=== PATIENT | female | born 1935 | race Caucasian/White ===

== ENCOUNTER 2017-06-08 14:51 | Emergency (ER) | payer MEDICARE, BC ==
[2017-06-08] MEDS ORDERED: Ondansetron 4 MG/2 ML SDV IV ONE (14:53)
[2017-06-08] MEDS ORDERED: fentaNYL 100 MCG/2 ML SDV IVPUSH ONE ×3 (14:54→16:03)
[2017-06-08] MEDS ORDERED: Sodium Chloride 0.9% 10 ML Syringe FLUSH PRN (14:54)
--- NOTE | 2017-06-08 14:57 | EDM.PDOC ---
ED HPI GENERAL MEDICAL PROBLEM - General Chief Complaint: Lower Extremity Injury/Pain Stated Complaint: AMBULANCE Time Seen by Provider: 06/08/17 14:51 Source of Information: Reports: Patient, EMS, RN, RN Notes Reviewed History Limitations: Reports: No Limitations - History of Present Illness INITIAL COMMENTS - FREE TEXT/NARRATIVE: Arrive from the [facility] by ambulance with report that pt slipped on ice as she got off the [employer] bus and fell to the ground sustaining an injury to the left hip area. Pt states that she cannot bear to move her left hip at all. Paramedics report pt's left leg was shortened and externally rotated. Pt denies head injury, neck pain, or any other injury. Onset: Today, Sudden Onset Date: 06/08/17 Duration: Constant Location: Reports: Lower Extremity, Left (Hip/Pelvis) Quality: Reports: Ache Severity: Severe Improves with: Reports: Immobilization Worsens with: Reports: Movement Context: Reports: Other (Ground level fall on ice.) Associated Symptoms: Reports: No Other Symptoms Left Hip Pain Score (Numeric/FACES): 10 - Related Data Allergies Allergy/AdvReac Type Severity Reaction Status Date / Time No Known Allergies Allergy Verified 06/08/17 15:58 Home Meds: Home Meds Lisinopril 2.5 mg PO DAILY 07/26/14 [History] Simvastatin 20 mg PO BEDTIME 07/26/14 [History] Warfarin [Coumadin] 4 mg PO DAILY 07/26/14 [History] Past Medical History Other HEENT History: wearing corrective lenses Cardiovascular History: Reports: Blood Clots/VTE/DVT, High Cholesterol Other OB/BYN History: Section Other Neuro History: Sciatica Hematologic History: Reports: Anticoagulation Therapy - Past Surgical History Other Cardiovascular Surgeries/Procedures: IVC filter Social & Family History - Family History Family Medical History: Noncontributory - Tobacco Use Smoking Status *Q: Never Smoker Second Hand Smoke Exposure: No - Caffeine Use Caffeine Use: Reports: None - Alcohol Use Days Per Week of Alcohol Use: 0 - Recreational Drug Use Recreational Drug Use: No Review of Systems - Review of Systems Review Of Systems: ROS reveals no pertinent complaints other than HPI. ED EXAM, GENERAL - Physical Exam Exam: See Below Exam Limited By: No Limitations General Appearance: Alert, WD/WN, No Apparent Distress Ears: Hearing Grossly Normal Nose: Normal Inspection Throat/Mouth: Normal Inspection, Normal Voice, No Airway Compromise Head: Atraumatic, Normocephalic Neck: Normal Inspection, Supple, Non-Tender, Full Range of Motion Respiratory/Chest: No Respiratory Distress, Lungs Clear, Normal Breath Sounds, No Accessory Muscle Use, Chest Non-Tender Cardiovascular: Regular Rate, Rhythm, No Edema GI/Abdominal: Normal Bowel Sounds, Soft, Non-Tender, No Distention (Female) Exam: Deferred Rectal (Female) Exam: Deferred Extremities: No Pedal Edema, Normal Capillary Refill, Leg Pain (left hip, with left lower ext. shortened and externally rotated), Limited Range of Motion ( left hip due to pain) Neurological: Alert, Oriented, CN II-XII Intact, Normal Cognition, No Motor/ Sensory Deficits Psychiatric: Normal Mood Skin Exam: Warm, Dry, Intact, Normal Color, No Rash Course - Vital Signs Last Recorded V/S: Last Vital Signs Temp 36.4 C 06/08/17 14:51 Pulse 66 06/08/17 14:51 Resp 14 06/08/17 14:51 BP 125/56 L 06/08/17 14:51 Pulse Ox 100 06/08/17 14:51 - Orders/Labs/Meds Orders: Active Orders 24 hr Category Date Time Status Peripheral IV Care [RC] . DIRECTED Care 06/08/17 14:54 Active Sodium Chloride 0.9% [Saline Flush] Med 06/08/17 14:54 Active 10 ml FLUSH ASDIRECTED PRN Peripheral IV Insertion Adult [OM.PC] Stat Oth 06/08/17 14:54 Ordered Medication Orders Sodium Chloride (Saline Flush) 10 ml FLUSH ASDIRECTED PRN PRN Reason: Keep Vein Open Last Admin: 06/08/17 15:20 Dose: 10 ml Labs: Laboratory Tests 06/08/17 06/08/17 Range/Units 15:12 15:12 WBC 6.2 (5.0-10.0) 10^3/uL RBC 4.11 L (4.2-5.4) 10^6/uL Hgb 13.4 (12.0-16.0) g/dL Hct 38.8 (37.0-47.0) % MCV 94.4 (80-100) fL MCH 32.6 (27.0-34.0) pg MCHC 34.5 (33.0-35.0) g/dL Plt Count 162 (150-450) 10^3/uL Neut % (Auto) 45.8 (42.2-75.2) % Lymph % (Auto) 44.4 (20.5-50.1) % Yancey % (Auto) 9.1 H (2-8) % Eos % (Auto) 0.7 L (1.0-3.0) % Baso % (Auto) 0.0 (0.0-1.0) % PT 27.5 H (9.0-12.0) SEC INR 2.7 H (0.9-1.2) Meds: Medications Generic Name Dose Route Start Last Admin Trade Name Freq PRN Reason Stop Dose Admin Sodium Chloride 10 ml 06/08/17 14:54 06/08/17 15:20 Saline Flush FLUSH 10 ml ASDIRECTED PRN Administration Keep Vein Open Discontinued Medications Generic Name Dose Route Start Last Admin Trade Name Freq PRN Reason Stop Dose Admin Fentanyl 25 mcg 06/08/17 14:54 06/08/17 15:19 Sublimaze IVPUSH 06/08/17 14:55 25 mcg ONETIME ONE Administration Fentanyl 25 mcg 06/08/17 15:29 06/08/17 15:37 Sublimaze IVPUSH 06/08/17 15:30 25 mcg ONETIME ONE Administration Fentanyl 25 mcg 06/08/17 16:03 Sublimaze IVPUSH 06/08/17 16:04 ONETIME ONE Ondansetron HCl 4 mg 06/08/17 14:53 06/08/17 15:19 Zofran IV 06/08/17 14:54 4 mg ONETIME ONE Administration - Radiology Interpretation Free Text/Narrative:: CT Pelvis: Left hip fracture at femoral neck, see Rad. report. CT Results Date: 06/08/17 CT Results Time: 16:05 Departure - Departure Time of Disposition: 16:06 Disposition: DC/Tfer to Acute Hospital 02 Condition: Serious Clinical Impression: Chronic anticoagulation, History of DVT (deep vein thrombosis) Closed left hip fracture Qualifiers: Encounter type: initial encounter Qualified Code(s): S72.002A - Fracture of unspecified part of neck of left femur, initial encounter for closed fracture Fall due to ice or snow Qualifiers: Encounter type: initial encounter Qualified Code(s): W00.9XXA - Unspecified fall due to ice and snow, initial encounter - Discharge Information Forms: ED Department Discharge, Interfacility Transfer EMTALA - My Orders Last 24 Hours: My Active Orders 06/08/17 14:54 Peripheral IV Care [RC] . DIRECTED Sodium Chloride 0.9% [Saline Flush] 10 ml FLUSH ASDIRECTED PRN Peripheral IV Insertion Adult [OM.PC] Stat - Assessment/Plan Last 24 Hours: My Active Orders 06/08/17 14:54 Peripheral IV Care [RC] . DIRECTED Sodium Chloride 0.9% [Saline Flush] 10 ml FLUSH ASDIRECTED PRN Peripheral IV Insertion Adult [OM.PC] Stat
--- NOTE | 2017-06-08 16:01 | CT ---
Clinical history: 82-year-old 115 pound female left hip pain after stepping while getting out of her vehicle (fall). Scan technique: Emergency unenhanced CT scan of the pelvis and hips obtained while the patient was ly ing supine on the Siemens multi slice scanner [place], [place]. All data archived in the [facility] system for storage, reformatting and study. Interpretation: Abnormal. 1. *Mild impaction acute subcapital fracture left femoral neck. Reasonable near anatomic alignment.. 2. No sign of other pelvic or contralateral right hip fracture. No dislocation of either hip. 3. Symmetric spacing normal-appearing SI and hip joints without appreciable arthritic degenerative ch [place]. 4. Homogeneous age-appropriate bone mineral density. Mild arthritic changes lower lumbar spine. 5. Calcifications normal caliber common iliac and femoral arteries. Senescent uterus right of midline . Sigmoid diverticulosis.
[2017-06-08 16:18] VITALS: BP 144/57
== END 2017-06-08 16:44 ==
LOC: DL.ED 14:51
DX: S72.002A Fracture of unspecified part of neck of left femur, initial encounter for closed fracture (principal); Z79.01 Long term (current) use of anticoagulants; Z79.899 Other long term (current) drug therapy; Z86.718 Personal history of other venous thrombosis and embolism; W00.9XXA Unspecified fall due to ice and snow, initial encounter
CPT/HCPCS: 36415; 72192; 85025; 85610; 96374; 96375; 96376; 99284; J2405; J3010; J7050